=== PATIENT | male | born 1975 | race Caucasian/White ===

== ENCOUNTER 2018-01-16 18:58 | Inpatient (IN) ==
[2018-01-16 20:18] LABS: Basophils # 0.1 K/mcL (0.0-0.2); Basophils % 0.7 %; Eosinophils # 0.1 K/mcL (0.0-0.6); Eosinophils % 1.1 %; Hematocrit 39.9 % (37.5-50.1); Hemoglobin 13.2 g/dL (12.9-16.9); Immature Granulocytes % 0.2 % (0-4); Lymphocytes # 1.5 K/mcL (0.6-4.6); Lymphocytes % 11.8 %; Mean Corpuscular HGB Conc 33.1 g/dL (31.6-35.5); Mean Corpuscular Volume 81.8 fL (83.0-100.0); Mean Platelet Volume 9.4 fL (9.4-12.4); Monocytes # 0.7 K/mcL (0.0-1.3); Neutrophils # 9.8 K/mcL (1.6-8.9); Platelet Count 210 K/mcL (140-400); Red Blood Count 4.88 M/mcL (4.19-5.50); Red Cell Distribution Width 12.5 % (11.5-14.5); Segmented Neutrophils % 80.2 %
[2018-01-16 20:30] LABS: BUN/Creatinine Ratio 13 (6-26); Blood Urea Nitrogen 11 mg/dL (6-20); C-Reactive Protein 47 mg/L (Less than 10); Calcium 9.2 mg/dL (8.6-10.3); Carbon Dioxide 26 mEq/L (23-29); Chloride 100 mEq/L (98-107); Glucose 185 mg/dL (70-105); Osmolality,Calculated 288 (280-300); Potassium 3.9 mEq/L (3.5-5.1); Sodium 137 mEq/L (136-145); eGFR For African Americans > 60 (> 60); eGFR For Non-African Americans > 60 (> 60)
[2018-01-16] MEDS ORDERED: Piperacillin/Tazobactam 3.375 GM in 0.9 % Sodium Chloride Mini Bag 100 ML IVPB ONE (20:45)
--- NOTE | 2018-01-16 20:48 | Emergency Department Note ---
Disposition Clinical Impression: Diabetes mellitus type 2 with complications Osteomyelitis of left foot Qualifiers: Osteomyelitis type: subacute Qualified Code(s): M86.272 - Subacute osteomyelitis, left ankle and foot Disposition: Admitted As Inpatient Condition: Fair Referrals: NONE,PCP [Primary Care Provider] - Time of Disposition: 20:49 General Adult HPI - General Chief complaint: ED Extremity Injury, Lower Stated complaint: "Diabetic Ulcer on Bottom of Left Foot" Time Seen by Provider: 01/16/18 19:05 Source: patient Limitations: no limitations Nursing Notes Reviewed: Yes Vital Signs Reviewed: Yes - History of Present Illness HPI Narrative: 42-year-old male presents emergency room for left foot wound. States he has had a small ulcer there for some time since gotten worse. He saw podiatry for the first time today as appointment and was sent to the ER. Patient denies any fevers. Denies any other complaints. States his sugars have been uncontrolled as he ran out of medications and had been out of them for over 8 months. He states the wound started on the bottom of the left foot and has spread deep. The left foot was just bandaged up by podiatry at their office. Pain Scale: 2 - Related Data Home Medications Medication Instructions Recorded Confirmed Atorvastatin [Lipitor] 10 mg PO HS 03/12/16 08/19/17 Canagliflozin [Invokana] 300 mg PO DAILY 03/12/16 08/19/17 metFORMIN [Glucophage] 1,000 mg PO BIDWM 03/12/16 08/19/17 Previous Rx's Medication Instructions Recorded Ibuprofen [Motrin] 800 mg PO TID #15 tablet 03/12/16 Levofloxacin [Levaquin] 750 mg PO DAILY #7 tablet 12/20/17 Allergies Allergy/AdvReac Type Severity Reaction Status Date / Time codeine Allergy Vomiting Verified 12/20/17 00:35 Review of Systems: Gen.: No fevers or chills or new weakness Eyes: Denies double vision or any vision changes Ears: Denies any otalgia Pharynx: Denies sore throat CV: Denies chest pain. Denies palpitations Respiratory: Denies any cough or sputum production. No shortness of breath. GI: Denies any nausea, vomiting, diarrhea, constipation. Denies abdominal pain Neuro: Denies any headache. No problems with ambulation. No numbness. Skin: Denies any rashes or abrasions Psych: Denies any depression or suicidal or homicidal ideation Musculoskeletal: Denies any arthralgias or myalgias Past Medical History - Past Medical History Medical history: Reports: diabetes Psychiatric history: Reports: no psych history - Social History Smoking Status: Never smoker Smokeless Tobacco Status: No Alcohol use: Reports: none Drug use: Reports: none Physical Exam - General Limitations: no limitations General appearance: alert, in no apparent distress - Head Head exam: atraumatic, normocephalic - Eye Eye exam: Present: normal appearance - Respiratory Respiratory exam: Present: normal lung sounds bilaterally - Cardiovascular Cardiovascular exam: Present: regular rate, normal rhythm - Abdominal Exam Abdominal exam: Present: soft, Non-Tender, normal bowel sounds - Expanded Lower Extremity Exam Foot/toe exam: Present: other (Bandage wrapped around the left foot. I did not and bandage this at this time. Reports were that this is a quarter-sized lesion extending into the deep spaces of the left foot. Podiatry did wrap this up and repeat bandage this.) Neurovascular/Tendon exam: Present: normal capillary refill - Psychiatric Psychiatric exam: Present: normal affect, normal mood - Skin Skin exam: Present: warm, dry, intact Course Vital Signs Temperature 97.9 F 01/16/18 20:18 Pulse Rate 98 01/16/18 20:18 Respiratory Rate 20 01/16/18 20:18 Blood Pressure 118/77 01/16/18 20:18 O2 Sat by Pulse Oximetry 98 01/16/18 20:18 Temperature 97.9 F 01/16/18 20:18 Pulse Rate 98 01/16/18 20:18 Respiratory Rate 20 01/16/18 20:18 Blood Pressure 118/77 01/16/18 20:18 O2 Sat by Pulse Oximetry 98 01/16/18 20:18 Oxygen Delivery Oxygen Delivery Room Air Medical Decision Making - MDM Narrative Medical decision making narrative: Plain films of left foot showed complete destruction of the left metatarsal. This is consistent with osteomyelitis most likely. Patient will be admitted and placed on IV antibiotics with IV Zosyn and IV vancomycin. Consult podiatry. This was secondary to uncontrolled diabetes. - Medical Records Medical records reviewed: Yes I reviewed the patient's medical records. - Lab Data Lab results reviewed: Yes I reviewed the patient's lab results. Result diagrams: 01/16/18 19:55 01/16/18 19:55 Lab Results 01/16/18 01/16/18 01/16/18 Range/Units 19:55 19:55 19:55 WBC 12.3 H (4.3-11.1) K/mcL RBC 4.88 (4.19-5.50) M/mcL Hgb 13.2 (12.9-16.9) g/dL Hct 39.9 (37.5-50.1) % MCV 81.8 L (83.0-100.0) fL MCH 27.0 L (28.0-33.3) pg MCHC 33.1 (31.6-35.5) g/dL RDW 12.5 (11.5-14.5) % Plt Count 210 (140-400) K/mcL MPV 9.4 (9.4-12.4) fL Immature Gran % 0.2 (0-4) % Seg Neutrophils % 80.2 % Lymphocytes % 11.8 % Monocytes % 6.0 % Eosinophils % 1.1 % Basophils % 0.7 % Neutrophils # 9.8 H (1.6-8.9) K/mcL Lymphocytes # 1.5 (0.6-4.6) K/mcL Monocytes # 0.7 (0.0-1.3) K/mcL Eosinophils # 0.1 (0.0-0.6) K/mcL Basophils # 0.1 (0.0-0.2) K/mcL ESR 47 H (0-10) mm/hr Sodium 137 (136-145) mEq/L Potassium 3.9 (3.5-5.1) mEq/L Chloride 100 (98-107) mEq/L Carbon Dioxide 26 (23-29) mEq/L BUN 11 (6-20) mg/dL Creatinine 0.87 (0.70-1.30) mg/dL Est GFR ( Amer) > 60 (> 60) Est GFR (Non-Af Amer) > 60 (> 60) BUN/Creatinine Ratio 13 (6-26) Glucose 185 H (70-105) mg/dL Calculated Osmolality 288 (280-300) Calcium 9.2 (8.6-10.3) mg/dL C-Reactive Protein 47 H (Less than 10) mg/L - Radiology Data Radiology results reviewed: Yes I reviewed the patient's radiology results.
[2018-01-17] MEDS ORDERED: Acetaminophen 325 MG TABLET PO PRN (01:11)
[2018-01-17] MEDS ORDERED: Naloxone 0.4 MG/ML INJ IVP PRN (01:11)
--- NOTE | 2018-01-17 01:28 | Internal Med History&Physical ---
Date of Encounter: 01/17/18 Time of Encounter: 20:00 Internal Medicine - H&P: HPI Chief complaint: Osteomyelitis Admitted From: Home Plans for Post Hospital Care: Home History of present illness: Mr. Bray is a 42 year old male Patient presented to the emergency room after seeing his forensic identification specialist earlier today for diabetic foot ulcer. He was in the hospital at [place] about a month ago for this, and had antibiotics to take after his discharge. He was told to follow-up with podiatry for which he did. Upon arrival to his forensic identification specialist's office, it was decided that he needed to go to the emergency room for likely admission for osteomyelitis. Patient states he would have the foot ulcer on the bottom of his left foot for about a year, he had no medical care for that time as he did not have insurance. He tried very hard to keep it clean. He has a history of diabetes for which he only takes metformin and watches his diet. He thinks his last A1c last April was around 6.5. He denies fever, nausea, vomiting, diarrhea, constipation, chest pain and abdominal pain. He has some swelling and redness of his left leg, and has noticed a spot on his right foot below his pinky toe that is presenting similarly to how this first presented about a year ago. He denies pain in either of his feet. Past Med Surg Social Fam HX - Past Medical History Medical history: diabetes Psychiatric history: no psych history - Past Surgical History Surgical History: appendectomy, cataract - Social History Smoking Status: Never smoker Smokeless Tobacco Status: No Alcohol use: none Drug use: none Internal Medicine - H&P: Meds Atorvastatin [Lipitor] 10 mg PO HS 03/12/16 [History] metFORMIN [Glucophage] 1,000 mg PO BIDWM 03/12/16 [History] 3 Allergy/AdvReac Type Severity Reaction Status Date / Time codeine Allergy Vomiting Verified 01/16/18 21:30 All Systems PM: A 10-system review of systems was performed and is negative for pertinent findings except as documented above in the HPI. - Constitutional Vitals: Temp Pulse Resp BP Pulse Ox 97.9 F 93 18 143/92 98 01/16/18 23:11 01/16/18 23:11 01/16/18 23:11 01/16/18 23:11 01/16/18 23:11 General appearance: Present: A&O X 3, pleasant, no acute distress - Head Head exam: Present: normal inspection - Eye Eye exam: Present: EOMI, normal appearance - Neck Neck exam general surgery: Present: full ROM. Absent: tenderness - Respiratory Respiratory exam: Present: CTAB. Absent: chest wall tenderness, rales, respiratory distress, wheezes - Cardiovascular Cardiovascular exam: Present: RRR. Absent: diastolic murmur, systolic murmur - GI/Abdominal GI/Abdominal exam: Present: normal bowel sounds. Absent: firm, guarding, tenderness - Extremities Exam Extremities exam: Present: warm, radial pulses palpable and symmetrical. Absent : tenderness Additional comments: Left foot in dressing from podiatry, nursing removed dressing and noted that the defect tunnels completely through the top and bottom of the foot over the 4th digit. Dressing replaced. Left lower extremity swollen and erythema, with mild pain at mid-calf. Right foot has a small area of callus under the 5th digit, not tender, no skin break down. - Neurological Exam Neurological exam: Present: oriented X3. Absent: motor sensory deficit, facial droop, speech deficit - Skin Skin exam: Present: normal color, warm. Absent: rash Internal Med - H&P Results - Labs CBC & Chem 7: 01/17/18 03:34 01/17/18 03:34 - Assessment and plan (1) Osteomyelitis of left foot Current Visit: Yes Status: Acute Assessment and plan: Podiatry sent the patient over to the emergency room from their office. Recommended admission for osteomyelitis. Podiatry will see the patient in the morning. Foot x-ray showed cellulitis/abscess in the dorsum of the foot, acute osteomyelitis involving proximal phalanx of the fourth digit fourth metatarsal. Radiology recommended contrast enhanced MRI and/or triple phase bone scan for further evaluation. Podiatry consult in the morning MRI of left foot today. Continue antibiotics Qualifiers: Osteomyelitis type: subacute Qualified Code(s): M86.272 - Subacute osteomyelitis, left ankle and foot (2) Diabetes mellitus type 2 with complications Current Visit: Yes Status: Acute Assessment and plan: Patient takes metformin and invokana at home, will use insulin while in the hospital low dose. Check A1c in the morning. Qualifiers: Qualified Code(s): E11.8 - Type 2 diabetes mellitus with unspecified complications (3) Left leg swelling Current Visit: Yes Status: Acute Assessment and plan: Secondary to cellulitis and osteomyelitis of the left foot Treat as above. - Time Spent With Patient Total time spent is greater than 50% in coordination of care (as documented) at patient's floor/unit and/or counseling patient: Greater than 35 minutes
[2018-01-17 04:01] LABS: Basophils # 0.1 K/mcL (0.0-0.2); Basophils % 0.6 %; Eosinophils # 0.2 K/mcL (0.0-0.6); Eosinophils % 1.7 %; Hemoglobin 11.9 g/dL (12.9-16.9); Immature Granulocytes % 0.4 % (0-4); Lymphocytes # 1.9 K/mcL (0.6-4.6); Lymphocytes % 21.1 %; Mean Corpuscular HGB Conc 33.1 g/dL (31.6-35.5); Mean Corpuscular Hemoglobin 26.7 pg (28.0-33.3); Mean Corpuscular Volume 80.9 fL (83.0-100.0); Mean Platelet Volume 9.3 fL (9.4-12.4); Monocytes # 0.7 K/mcL (0.0-1.3); Monocytes % 7.5 %; Neutrophils # 6.2 K/mcL (1.6-8.9); Platelet Count 180 K/mcL (140-400); Red Blood Count 4.45 M/mcL (4.19-5.50); Red Cell Distribution Width 12.5 % (11.5-14.5); Segmented Neutrophils % 68.7 %
[2018-01-17 04:09] LABS: BUN/Creatinine Ratio 11 (6-26); Blood Urea Nitrogen 8 mg/dL (6-20); Calcium 8.7 mg/dL (8.6-10.3); Carbon Dioxide 27 mEq/L (23-29); Chloride 102 mEq/L (98-107); Glucose 145 mg/dL (70-105); Osmolality,Calculated 283 (280-300); Potassium 3.5 mEq/L (3.5-5.1); Sodium 136 mEq/L (136-145); eGFR For African Americans > 60 (> 60); eGFR For Non-African Americans > 60 (> 60)
[2018-01-17] MEDS: *HR* Heparin 5,000 UNIT/ML VIAL SQ SCH ×2 (05:41→18:00)
[2018-01-17] MEDS ORDERED: *HR* Dextrose 50 % in Water (Syg) 50 ML SYRINGE IVP PRN (07:10)
[2018-01-17] MEDS ORDERED: D5% in Water 1,000 ML IVC PRN (07:10)
[2018-01-17] MEDS ORDERED: Dextrose Gel 15 GM/37.5 ML TUBE PO PRN ×2 (07:10)
[2018-01-17 07:20] LABS: Estimated Average Glucose 143 mg/dl; Hemoglobin A1C 6.6 %
[2018-01-17] MEDS: Piperacillin/Tazobactam 3.375 GM in 0.9 % Sodium Chloride Mini Bag 100 ML IVPB SCH ×2 (09:06→17:48)
[2018-01-17] MEDS: Insulin LISPRO 300 UNITS/3 ML VIAL SQ SCH ×3 (09:10→17:01)
--- NOTE | 2018-01-17 13:16 | Podiatry Consult Note ---
Date of Encounter: 01/17/18 Time of Encounter: 12:20 Assessment and Plan (1) Osteomyelitis of left foot Current visit: Yes Status: Acute Full thickness ulceration to the left foot sub #4 metatarsal head communicating through to the dorsum of the foot at the base of the proximal phalanx, toe #4 with cellulitis and pus actively draining. Left foot x ray: Findings highly concerning for cellulitis/abscess involving the dorsum of the left foot and acute osteomyelitis involving the proximal phalanx of the left 4th digit and left 4th metatarsal. WBC: 12.3 upon admission, 9.1 today. Glucose 185 ESR: 47, CRP: 47 Plan: Continue wound care as ordered. Dr. Diehl to plan to take patient to surgery tomorrow 01/18/18 for amputation of 4th toe and metatarsal left foot with application of wound vac. NPO after midnight. Currently on Zosyn and Vancomycin. Qualifiers: Osteomyelitis type: subacute Qualified Code(s): M86.272 - Subacute osteomyelitis, left ankle and foot (2) Diabetes mellitus type 2 with complications Current visit: Yes Status: Acute Qualifiers: Diabetes mellitus watermelon inspector insulin use: without snf use Qualified Code(s): E11.8 - Type 2 diabetes mellitus with unspecified complications History of Present Illness HPI: Mr. Bray is a 42 year old male admitted to [place] with an ulceration to the left foot. Patient has a medical history significant for diabetes mellitus. Patient states last year he had a callus start on the bottom of his left foot. Patient states in July of 2017 the callus was draining and at that time was evaluated in the emergency room. Patient states he received antibiotics and instructed to follow up with podiatry. Patient states he did not follow up with podiatry due to losing his insurance. Patient states last month in December he had an infection of the left foot and x-rays were obtained at that time and he was told everything was okay and started on oral antibiotics. Patient states he followed up with Dr. Diehl last night at the [facility] and was instructed to go to the Emergency Room. Patient denies any fever, chills, chest pain, or shortness of breath. Patient does admit to numbness and tingling to both feet. Patient denies any surgeries to his feet. 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 Past Med Surg Social Fam HX - Past Medical History Medical history: diabetes Psychiatric history: no psych history - Past Surgical History Surgical History: appendectomy, cataract - Social History Smoking Status: Never smoker Smokeless Tobacco Status: No Alcohol use: none Drug use: none Medications and Allergies Atorvastatin [Lipitor] 10 mg PO HS 03/12/16 [History] metFORMIN [Glucophage] 1,000 mg PO BIDWM 03/12/16 [History] 3 Allergy/AdvReac Type Severity Reaction Status Date / Time codeine Allergy Vomiting Verified 01/16/18 21:30 All Systems Reviewed: Denies cp, denies sob, denies fever, denies chills, admits ulcer, admits numbness/tingling Physical Exam - Constitutional Vitals: Temp Pulse Resp BP Pulse Ox 98.0 F 76 16 120/80 99 01/17/18 11:29 01/17/18 11:29 01/17/18 11:29 01/17/18 11:29 01/17/18 11:29 Exam: General appearance: alert awake oriented X 3. Calm and pleasant, no acute distress.. Vascular: Pedal pulses +2/4 DP/PT , No evidence of cyanosis, pallor or rubor, Edema graded at 2+/4, Skin Temperature warm, No calf pain with manual compression. capillary refill time is immediate to digits. Neurologic: Sensation intact with light touch to foot. . Wound: Full thickness ulceration to the left foot sub #4 metatarsal head communicating through to the dorsum of the foot at the base of the proximal phalanx, toe #4 with cellulitis ascending to the midfoot, pus actively draining , malodorous, foot is edematous and warm to touch. Results - Labs Result Diagrams: 01/17/18 03:34 01/17/18 03:34 Labs: Abnormal lab results Hgb 11.9 g/dL (12.9-16.9) L 01/17/18 03:34 Hct 36.0 % (37.5-50.1) L 01/17/18 03:34 MCV 80.9 fL (83.0-100.0) L 01/17/18 03:34 MCH 26.7 pg (28.0-33.3) L 01/17/18 03:34 MPV 9.3 fL (9.4-12.4) L 01/17/18 03:34 ESR 47 mm/hr (0-10) H 01/16/18 19:55 Glucose 145 mg/dL (70-105) H 01/17/18 03:34 POC Glucose 146 mg/dL (70-99) H 01/17/18 11:29 Hemoglobin A1c 6.6 % (-5.6) H 01/17/18 03:34 C-Reactive Protein 47 mg/L (Less than 10) H 01/16/18 19:55 H & H 01/17/18 Range/Units 03:34 Hgb 11.9 L (12.9-16.9) g/dL Hct 36.0 L (37.5-50.1) % All other labs normal. Consult Discharge Plan - Plan Referrals: NONE,PCP [Primary Care Provider] -
[2018-01-18] MEDS: *HR* Heparin 5,000 UNIT/ML VIAL SQ SCH ×2 (05:40→16:19)
[2018-01-18] MEDS: Insulin LISPRO 300 UNITS/3 ML VIAL SQ SCH ×3 (09:31→16:11)
--- NOTE | 2018-01-18 11:51 | Anesthesia Evaluation PreOp ---
Date of Encounter: 01/18/18 Time of Encounter: 13:01 - Past History Planned Operation: Open toe amputation metatarsal #4 L foot Cardiac History: Hyperlipidemia Pulmonary History: Denies Any Significant HX ENTRY OPERATOR History: Denies Any Significant HX Other Medical History: Diabetes Type II, Other (osteomyelitits) Anesthesia History: No Prior Anesthetic Complications Alcohol Use: none Drug use: none Medications and Allergies Atorvastatin [Lipitor] 10 mg PO HS 03/12/16 [History] metFORMIN [Glucophage] 1,000 mg PO BIDWM 03/12/16 [History] 3 Allergy/AdvReac Type Severity Reaction Status Date / Time codeine Allergy Vomiting Verified 01/16/18 21:30 - Meds/Allergy Pre-op Review Medications Reviewed: Yes Allergies Reviewed: Yes Beta Blockers on Current Med List: No Anesthesia Results - Labs 01/17/18 03:34 01/17/18 03:34 Anesthesia Exam Last Vital Signs Temp 98.7 F 01/18/18 11:42 Pulse 81 01/18/18 11:42 Resp 17 01/18/18 11:42 BP 108/72 01/18/18 11:42 Pulse Ox 97 01/18/18 11:42 Weight: 102 kg - HEENT Pupil (Motor): Pupils equal, EOMI Mallampati: III Teeth: Normal Oral Opening: Greater than 3 - ENTRY OPERATOR LOC: Oriented - Cardiac Rhythm: Regular Murmur: None - Pulmonary Breath Sounds: bilateral Clear Respiratory Effort: Symmetrical Anesthesia Assess/Plan ASA Score: 2 Modified My Scale for Level of Consciousness: Cooperative, oriented, and tranquil Anesthetic Plan: General Monitoring Plan: Standard Monitors Recovery Plan: PACU
--- NOTE | 2018-01-18 12:33 | Podiatry Progress Note ---
Date of Encounter: 01/18/18 Time of Encounter: 12:00 - Assessment and Plan (1) Abscess of left foot including toes Current Visit: Yes Status: Acute Assessment: #1 diabetic foot abscess with ulceration and dorsal phlegmon with ongoing osteomyelitis fourth toe and metatarsal #2 diabetes with neuropathy #3 comorbidities as outlined in history Plan: #1 recommend amputation of toe and all infected tissue and bone. #2 discussed the risks versus benefits as well as alternatives to surgical intervention. Risks include but are not limited to infection bleeding pain loss of toe toes foot leg or life need for further surgery, failure procedure produce desired results DVT blood clots. Patient voiced comprehension. He had ample opportunity to ask questions about planned procedure and type of anesthetic and be employed. Those questions are answered to his satisfaction. He then signed a consent form no dressing or coercion without premedicated by me prior to signing consent form. We will proceed to the operating room expectantly. Subjective Principal diagnosis: Diabetic foot ulcer with abscess and osteomyelitis left Interval history: This 42-year-old male with a six-month history of foot ulcer plantar aspect #4 metatarsophalangeal joint. Patient has received intermittent by mouth antibiotics and different providers over the last 6 months. He was last seen in urgent care we will highly took x-rays and said he had no bone infection. He presented to the [facility] on Tuesday evening this week where I was asked to see him on urgent basis. At that point patient exhibited a phlegmon with a blowout lesion on the dorsal aspect of his fourth toe. Cultures were taken immediately. Patient was then recommended to go to the [facility] department for admission. Fortunately he has not shown any signs of sepsis at this point. An x-rays reveal complete erosion of the fourth metatarsal distally as well as the base the proximal phalanx. The patient's white count has normalized on intravenous antibiotics. He is otherwise stable. His A1c is stable a 6.6. He works 4 days a week. He is accompanied by his significant other. We have recommended that he undergo an incision debridement likely amputation of the fourth toe with resection of all infected tissue and bone. He would likely be placed on intravenous antibiotics for. 6 weeks depending upon response to treatment. Objective - Vital Signs Vital Signs: Vital Signs Temp Pulse Resp BP Pulse Ox 01/18/18 11:42 98.7 F 81 17 108/72 97 01/18/18 09:45 94 01/18/18 07:43 97.9 F 82 17 114/79 94 01/18/18 04:16 98.4 F 76 14 123/74 96 01/18/18 00:35 98.6 F 76 16 145/75 95 01/17/18 20:45 98 01/17/18 19:34 98.1 F 80 15 115/75 98 01/17/18 16:57 98.2 F 77 16 114/73 98 Intake and Output 01/17/18 01/18/18 01/18/18 23:59 07:59 15:59 Intake Total 240 / 240 Output Total 600 / 600 Balance -360 / -360 Intake: Oral 240 / 240 Output: Urine 600 / 600 Other: Meal Dinner Percent of Meal Consumed 100% # Voids 1 # Bowel Movements 0 Weight 102.4 kg Blood Glucose* 112 110 - Exam Exam: Foot ulcer plantar aspect left foot with phlegmon dorsal aspect fourth toe left foot Capillary Refill: less than 3 seconds - Radiology X-Rays: image reviewed - Lab Result Diagrams: 01/17/18 03:34 01/17/18 03:34 Labs: Abnormal lab results Hgb 11.9 g/dL (12.9-16.9) L 01/17/18 03:34 Hct 36.0 % (37.5-50.1) L 01/17/18 03:34 MCV 80.9 fL (83.0-100.0) L 01/17/18 03:34 MCH 26.7 pg (28.0-33.3) L 01/17/18 03:34 MPV 9.3 fL (9.4-12.4) L 01/17/18 03:34 ESR 47 mm/hr (0-10) H 01/16/18 19:55 Glucose 145 mg/dL (70-105) H 01/17/18 03:34 POC Glucose 108 mg/dL (70-99) H 01/18/18 08:18 Hemoglobin A1c 6.6 % (-5.6) H 01/17/18 03:34 C-Reactive Protein 47 mg/L (Less than 10) H 01/16/18 19:55 Consult Discharge Plan - Plan Referrals: NONE,PCP [Primary Care Provider] -
[2018-01-18] MEDS ORDERED: Bupivacaine/Clonidine Syringe 1 EACH SYRINGE ONE (13:01)
[2018-01-18] MEDS ORDERED: *HR* FentaNYL (PF) 100 MCG/2 ML VIAL ONE (13:07)
[2018-01-18] MEDS ORDERED: Lidocaine -MPF 2% 2 ML VIAL ONE (13:07)
[2018-01-18] MEDS ORDERED: *HR* Propofol 200 MG/20 ML VIAL IVP ONE (13:07)
[2018-01-18] MEDS ORDERED: *HR* Midazolam HCl 2 MG/2 ML VIAL ONE (13:08)
[2018-01-18] MEDS ORDERED: traMADol 50 MG TABLET PO PRN (13:22)
[2018-01-18] MEDS ORDERED: *HR* Promethazine 25 MG/ML VIAL IVP PRN (13:22)
[2018-01-18] MEDS ORDERED: *HR* OxyCODONE Immed Rel 5 MG TABLET PO PRN (13:22)
[2018-01-18] MEDS ORDERED: *HR* Succinylcholine 200 MG/10 ML VIAL IVP ONE (13:28)
[2018-01-18] MEDS ORDERED: Dexamethasone 4 MG/ML VIAL ONE (13:50)
[2018-01-18] MEDS ORDERED: Ondansetron 4 MG/2 ML VIAL ONE (13:50)
--- NOTE | 2018-01-18 14:53 | Orthopedic Operative Note ---
Date of procedure: 01/18/18 Pre-op diagnosis: #1 abscess left foot. #2 osteomyelitis #4 toe and metatarsal left foot Post-op diagnosis: same Procedure: 01/18/18 14:51 #1 incision and drainage left foot multiple areas #2 open amputation of toe #4 and metatarsal #4 left foot #3 placement of wound VAC Implants: None Complications: None Anesthesia: other (General anesthesia per LMA) Local Anesthetics: 0.25% Sensorcaine HCL SubQ (cc) Surgeon: Paulo Diehl Was there an outreach assistant present: No Estimated blood loss (cc): 10 Tourniquet Time (Minutes): 23 Specimen: #1 toe #4 left foot, tissue culture bone culture and swab cultures left marino Condition: stable Disposition: PACU Procedure in Detail: 01/18/18 14:53 Details in summary of procedure. Patient was brought to surgical suite. A sign in procedure was performed. Patient was then transferred the surgical table and positioned properly safely securely. Anesthetic timeout was taken. Left leg was elevated on a foam block. Patient underwent smooth induction general anesthesia was achieved per LMA. That point left ankle was prepped with alcohol 3 times in a modified ankle block was carried out without difficulty or complication. A complete rolled cast padding was placed above the malleoli followed by application ankle tourniquet. Surgical timeout was taken. A phlegmon was notable dorsal aspect of toe #4 overlying the MTPJ. Penetrating ulcer was noted on the plantar aspect fourth metatarsal left foot. The toe is globally edematous discoloration localized cellulitis. Fourth toe was identified. There is spontaneous purulent drainage emanating from the wound of the dorsal aspect of the fourth MTPJ. At that point incision was begun on the plantar aspect of the left foot just proximal to the penetrating ulceration and brought distally and then circumferentially with 2 similar elliptical incisions excising the ulceration and brought to the sulcus and then circumferentially around the fourth toe and a racquet type incision medial dorsal aspect of the base of the fourth toe and then proximally along the shaft of the fourth metatarsal. Extensor flexor tendons were divided to the fourth toe. The toe was then disarticulated easily without dividing the capsular structures because of the complete loss the integrity of the joint. Preoperative radiographs illustrated complete loss of the base of the proximal phalanx and the distal portion of the fourth metatarsal due to the osteomyelitis. After the toe was amputated incision was carried down to the fourth metatarsal distally along the shaft proximally. Fourth metatarsal was isolated using a McClamary elevator. Taking care McGlamry elevator was kept on the plantar aspect of the fourth metatarsal. Using [place] retractors to protect soft tissue the metatarsal was then divided at the proximal one third dorsal to plantar using a command power saw. McClamary elevator was left in place to protect soft tissue. The metatarsal was then resected ends placed in sterile cup and sent for culture immediately. Swab cultures were then taken of the wound. As well as tissue cultures. Remainder the wound was then debrided with a pickup and curved Metzenbaum scissor. At that point a month ultrasonic Misonix debrider was used to also debride the wound. Inspecting the void of the wound was thoroughly irrigated again with saline. All nonviable tissue was debrided. The wound was then sprayed with PRP placing a Ray-Sourav sponge in the wound tourniquet was released. Immediate hyperemic response was noted to toes #1235.. Sponge was left in place while I was able to perform skin closure on the plantar aspect of the foot from proximal distal to the webspace. At that point a wound VAC was then placed dorsally. It was found to function properly. Patient was then sent to PACU in good condition with vital signs stable. Estimated blood loss less than 10 mL tourniquet time 23 minutes. Complications none.
--- NOTE | 2018-01-18 15:20 | Anesthesia Evaluation Post Op ---
Date of Encounter: 01/18/18 Time of Encounter: 15:19 - Vital Signs Vital Signs: Last Vital Signs Temp 97.4 F L 01/18/18 14:58 Pulse 84 01/18/18 15:18 Resp 18 01/18/18 15:18 BP 105/76 01/18/18 15:18 Pulse Ox 96 01/18/18 15:18 - Lungs Lungs: Clear Ascult./Percussion - Airway Airway: Non-obstructed - Cardiovascular Regular Rate - Mental Status Mental Status: Alert & Oriented, Answers Appropriately - Pain Pain Scale: 2 - Nausea Vomiting Nausea Vomiting: Not Present - Hydration Hydration: Ice chips - Discharge PostOp Status: Transfer Patient to floor
[2018-01-18] MEDS ORDERED: Dextrose Gel 15 GM/37.5 ML TUBE PO PRN ×2 (15:34)
[2018-01-18] MEDS ORDERED: Naloxone 0.4 MG/ML INJ IVP PRN (15:34)
[2018-01-18] MEDS ORDERED: *HR* Dextrose 50 % in Water (Syg) 50 ML SYRINGE IVP PRN (15:34)
[2018-01-18] MEDS ORDERED: D5% in Water 1,000 ML IVC PRN (15:34)
[2018-01-18] MEDS ORDERED: Acetaminophen 325 MG TABLET PO PRN (15:34)
[2018-01-18] MEDS: Piperacillin/Tazobactam 3.375 GM in 0.9 % Sodium Chloride Mini Bag 100 ML IVPB SCH ×2 (16:19→23:24)
--- NOTE | 2018-01-18 20:41 | Internal Med Progress Note ---
Date of Encounter: 01/18/18 Time of Encounter: 20:41 - Assessment and plan (1) Osteomyelitis of left foot Current Visit: Yes Status: Acute Qualifiers: Osteomyelitis type: subacute Qualified Code(s): M86.272 - Subacute osteomyelitis, left ankle and foot (2) Type 2 diabetes mellitus Current Visit: Yes Status: Acute Qualifiers: Diabetes mellitus moth exterminator insulin use: without penitentiary use Diabetes mellitus complication status: with skin complications Diabetes mellitus complication detail: with foot ulcer Qualified Code(s): E11.621 - Type 2 diabetes mellitus with foot ulcer; L97.509 - Non-pressure chronic ulcer of other part of unspecified foot with unspecified severity (3) HLD (hyperlipidemia) Current Visit: Yes Status: Acute Qualifiers: Hyperlipidemia type: unspecified Qualified Code(s): E78.5 - Hyperlipidemia , unspecified - Time Spent With Patient Total time spent is greater than 50% in coordination of care (as documented) at patient's floor/unit and/or counseling patient: 25 - 35 minutes - Subjective Interval history: .. The patient had surgery today. It was incision and drainage of left foot; multiple areas. It was an open amputation of toe #4 and metatarsal #4 of left foot. A wound VAC was put in place. I saw this patient after the surgery. He does not feel anything in his left foot. Denies chest pain. Denies difficulty breathing, coughing and wheezing. OBJECTIVE: .. Skin: Free of rash and discoloration. There is a surgical dressing applied to the area of left foot. ENMT: Oral/pharyngeal mucosa is normal in appearance. Eyes: Sclera is white. There is no discharge from eyes. Respiratory: Normal breath sounds; no crackles or wheezes. CV: Heart is regular; no gallop or murmur. GI: Abdomen is soft and not tender. There is no palpable mass or visceromegaly. Neuro: There is no focal deficits. ASSESSMENT AND PLAN: .. Osteomyelitis of left foot. Diabetic foot ulcer of left foot. The surgery has been done. We will continue IV vancomycin and IV Zosyn. We will continue wound VAC. See notes from podiatry. The patient was on diabetic diet and metformin at home. His metformin is substituted by Humalog sliding scale. Hyperlipidemia. Will continue Lipitor. - Constitutional Vitals: Temp Pulse Resp BP Pulse Ox 98.4 F 84 15 104/67 97 07/04/18 20:20 01/18/18 20:20 01/18/18 20:20 01/18/18 20:20 01/18/18 20:20 General appearance: Present: A&O X 3, pleasant, no acute distress Internal Medicine: Result - Labs CBC & Chem 7: 01/17/18 03:34 01/17/18 03:34 - Impressions Impressions Foot X-Ray 01/18/18 14:59 IMPRESSION: 1. Status post amputation left 4th ray across the proximal 4th metatarsal diaphysis. 2. Other osseous structures appear unremarkable. 3. No unexpected retained radiopaque foreign body. 4. Correlate with the procedural report. D/ / Abdullahi Porter / Abdullahi Porter Interpreting Provider: Abdullahi Porter - VTE Documentation of Mechanical Device: Intermittent pneumatic compression device Consult Discharge Plan - Plan Referrals: NONE,PCP [Primary Care Provider] -
[2018-01-19] MEDS: *HR* Heparin 5,000 UNIT/ML VIAL SQ SCH ×2 (06:35→17:05)
[2018-01-19] MEDS: Insulin LISPRO 300 UNITS/3 ML VIAL SQ SCH ×3 (08:57→17:10)
[2018-01-19] MEDS: Piperacillin/Tazobactam 3.375 GM in 0.9 % Sodium Chloride Mini Bag 100 ML IVPB SCH ×2 (08:58→17:07)
--- NOTE | 2018-01-19 16:31 | Podiatry Progress Note ---
Date of Encounter: 01/19/18 Time of Encounter: 13:00 - Assessment and Plan (1) Osteomyelitis of left foot Current Visit: Yes Status: Acute Full thickness ulceration to the left foot sub #4 metatarsal head communicating through to the dorsum of the foot at the base of the proximal phalanx, toe #4 with cellulitis and pus actively draining. Left foot x ray: Findings highly concerning for cellulitis/abscess involving the dorsum of the left foot and acute osteomyelitis involving the proximal phalanx of the left 4th digit and left 4th metatarsal. S/p #1 incision and drainage left foot multiple areas #2 open amputation of toe #4 and metatarsal #4 left foot #3 placement of wound VAC by Dr. Diehl on 01/18/18 Intraop cultures pending. Plan: Wound VAC intact to the left foot, patient will need a wound VAC dressing change tomorrow. Wound VAC will need to be changed every Tuesday, Tuesday, Tuesday. Currently on Zosyn and Vancomycin. We will continue to follow patient closely. Patient will require a wound VAC post discharge. Qualifiers: Osteomyelitis type: subacute Qualified Code(s): M86.272 - Subacute osteomyelitis, left ankle and foot (2) Diabetes mellitus type 2 with complications Current Visit: Yes Status: Acute Qualifiers: Diabetes mellitus alf insulin use: without terminal system operator use Qualified Code(s): E11.8 - Type 2 diabetes mellitus with unspecified complications Subjective Principal diagnosis: Diabetic foot ulcer with abscess and osteomyelitis left Interval history: Patient is s/p incision and drainage left foot multiple areas, open amputation of toe #4 and metatarsal #4 left foot, placement of wound VAC by Dr. Diehl on 01/18/18. Patient is lying in bed with a wound VAC intact to the left foot. Patient denies any pain currently. Patient just had a PICC line inserted to the right upper extremity. No c/o fever, chills, cp, sob, calf pain or flu like symptoms. Objective - Vital Signs Vital Signs: Vital Signs Temp Pulse Resp BP Pulse Ox 01/19/18 14:39 97.8 F 80 18 104/69 97 01/19/18 11:12 97.7 F 78 18 100/63 98 01/19/18 06:52 97.8 F 78 18 110/70 97 01/19/18 03:36 98.5 F 79 15 103/67 95 07/04/18 23:33 99.0 F 84 15 111/69 97 01/18/18 20:20 98.4 F 84 15 104/67 97 01/18/18 18:41 97.6 F 92 16 103/66 96 01/18/18 17:39 97.7 F 91 16 116/76 98 01/18/18 16:43 97.9 F 85 16 100/67 98 Intake and Output 01/19/18 01/19/18 01/19/18 07:59 15:59 23:59 Intake Total 100 / 100 950 / 950 Output Total 750 / 750 550 / 550 Balance -650 / -650 400 / 400 Intake: IV Fluids 100 / 100 350 / 350 Zosyn 3.375 GM In 0.9 % Sodium 100 / 100 100 / 100 Chloride (Mini-Bag +) 100 ML @ 25 mls/hr IVPB Q8HR [facility] Rx#: [id number] Vancocin 1,500 MG In 0.9 % 250 / 250 Sodium Chloride 250 ML @ 167 mls/hr IVPB Q12H [facility] Rx#: [id number] Oral 600 / 600 Output: Urine 750 / 750 550 / 550 Other: Meal Lunch Percent of Meal Consumed 100% # Voids 1 Blood Glucose* 126 146 - Exam Exam: General appearance: alert awake oriented X 3. Calm and pleasant, no acute distress.. Vascular: Pedal pulses +2/4 DP/PT , No evidence of cyanosis, pallor or rubor, Edema graded at 1+/4, Skin Tempature warm, No calf pain with manual compression. capillary refill time is immediate to digits. Neurologic: Sensation intact with light touch to foot. . Postop Exam: S/P Wound vac intact to left foot, connected to 125mmhg low continuous suction. dressing dry and intact, no strikethrough drainage, no streaking, no odor, no pus, 60 mls of serosanguineous drainage observed to canister. - Lab Result Diagrams: 01/17/18 03:34 01/17/18 03:34 Labs: Abnormal lab results Hgb 11.9 g/dL (12.9-16.9) L 01/17/18 03:34 Hct 36.0 % (37.5-50.1) L 01/17/18 03:34 MCV 80.9 fL (83.0-100.0) L 01/17/18 03:34 MCH 26.7 pg (28.0-33.3) L 01/17/18 03:34 MPV 9.3 fL (9.4-12.4) L 01/17/18 03:34 ESR 47 mm/hr (0-10) H 01/16/18 19:55 Glucose 145 mg/dL (70-105) H 01/17/18 03:34 POC Glucose 219 mg/dL (70-99) H 01/18/18 21:52 Hemoglobin A1c 6.6 % (-5.6) H 01/17/18 03:34 C-Reactive Protein 47 mg/L (Less than 10) H 01/16/18 19:55 Microbiology, Last 48 Hours 01/18/18 14:00 Surgical Biopsy Culture - Preliminary Left Foot 01/18/18 14:06 Surgical Biopsy Culture - Preliminary Left Foot - VTE Documentation of Mechanical Device: Intermittent pneumatic compression device Consult Discharge Plan - Plan Referrals: NONE,PCP [Primary Care Provider] -
--- NOTE | 2018-01-19 18:10 | Internal Med Progress Note ---
Date of Encounter: 01/19/18 Time of Encounter: 18:10 - Assessment and plan (1) Osteomyelitis of left foot Current Visit: Yes Status: Acute Qualifiers: Osteomyelitis type: subacute Qualified Code(s): M86.272 - Subacute osteomyelitis, left ankle and foot (2) Type 2 diabetes mellitus Current Visit: Yes Status: Chronic Qualifiers: Diabetes mellitus half-way insulin use: without half-way use Diabetes mellitus complication status: with skin complications Diabetes mellitus complication detail: with foot ulcer Qualified Code(s): E11.621 - Type 2 diabetes mellitus with foot ulcer; L97.509 - Non-pressure chronic ulcer of other part of unspecified foot with unspecified severity (3) HLD (hyperlipidemia) Current Visit: Yes Status: Chronic Qualifiers: Hyperlipidemia type: unspecified Qualified Code(s): E78.5 - Hyperlipidemia , unspecified - Time Spent With Patient Total time spent is greater than 50% in coordination of care (as documented) at patient's floor/unit and/or counseling patient: - Subjective Interval history: .. The patient had surgery yesterday. It was incision and drainage of left foot; multiple areas. It was an open amputation of toe #4 and metatarsal #4 of left foot. A wound VAC was put in place. He does not feel anything in his left foot. Denies chest pain. Denies difficulty breathing, coughing and wheezing. OBJECTIVE: .. Skin: Free of rash and discoloration. There is a surgical dressing applied to the area of left foot. ENMT: Oral/pharyngeal mucosa is normal in appearance. Eyes: Sclera is white. There is no discharge from eyes. Respiratory: Normal breath sounds; no crackles or wheezes. CV: Heart is regular; no gallop or murmur. GI: Abdomen is soft and not tender. There is no palpable mass or visceromegaly. Neuro: There is no focal deficits. ASSESSMENT AND PLAN: .. Osteomyelitis of left foot. Diabetic foot ulcer of left foot. The surgery has been done. We will continue IV vancomycin and IV Zosyn. We will continue wound VAC. See notes from podiatry. The patient was on diabetic diet and metformin at home. His metformin is substituted by Humalog sliding scale. Hyperlipidemia. Will continue Lipitor. - Constitutional Vitals: Temp Pulse Resp BP Pulse Ox 97.8 F 80 18 104/69 97 01/19/18 14:39 01/19/18 14:39 01/19/18 14:39 01/19/18 14:39 01/19/18 14:39 General appearance: Present: A&O X 3, pleasant, no acute distress Internal Medicine: Result - Labs CBC & Chem 7: 01/20/18 00:46 01/20/18 00:46 - VTE Documentation of Mechanical Device: Intermittent pneumatic compression device Consult Discharge Plan - Plan Referrals: NONE,PCP [Primary Care Provider] -
[2018-01-20] MEDS: Piperacillin/Tazobactam 3.375 GM in 0.9 % Sodium Chloride Mini Bag 100 ML IVPB SCH ×3 (00:04→16:26)
[2018-01-20 01:00] LABS: Basophils # 0.1 K/mcL (0.0-0.2); Basophils % 0.8 %; Eosinophils # 0.2 K/mcL (0.0-0.6); Eosinophils % 3.1 %; Hematocrit 36.2 % (37.5-50.1); Immature Granulocytes % 0.4 % (0-4); Lymphocytes # 2.3 K/mcL (0.6-4.6); Lymphocytes % 31.6 %; Mean Corpuscular HGB Conc 33.1 g/dL (31.6-35.5); Mean Corpuscular Hemoglobin 27.5 pg (28.0-33.3); Mean Platelet Volume 9.3 fL (9.4-12.4); Monocytes # 0.5 K/mcL (0.0-1.3); Monocytes % 6.5 %; Neutrophils # 4.1 K/mcL (1.6-8.9); Platelet Count 172 K/mcL (140-400); Red Blood Count 4.36 M/mcL (4.19-5.50); Red Cell Distribution Width 12.6 % (11.5-14.5); Segmented Neutrophils % 57.6 %
[2018-01-20 01:22] LABS: BUN/Creatinine Ratio 14 (6-26); Blood Urea Nitrogen 13 mg/dL (6-20); Calcium 8.8 mg/dL (8.6-10.3); Carbon Dioxide 30 mEq/L (23-29); Chloride 102 mEq/L (98-107); Glucose 126 mg/dL (70-105); Magnesium 1.9 mg/dL (1.6-2.6); Osmolality,Calculated 288 (280-300); Potassium 3.9 mEq/L (3.5-5.1); Sodium 138 mEq/L (136-145); eGFR For African Americans > 60 (> 60); eGFR For Non-African Americans > 60 (> 60)
[2018-01-20] MEDS: *HR* Heparin 5,000 UNIT/ML VIAL SQ SCH ×2 (06:16→18:37)
[2018-01-20] MEDS: Insulin LISPRO 300 UNITS/3 ML VIAL SQ SCH ×3 (08:17→18:36)
--- NOTE | 2018-01-20 13:53 | Podiatry Progress Note ---
Date of Encounter: 01/20/18 Time of Encounter: 12:00 - Assessment and Plan (1) Abscess of left foot including toes Current Visit: Yes Status: Acute Full thickness ulceration to the left foot sub #4 metatarsal head communicating through to the dorsum of the foot at the base of the proximal phalanx, toe #4 with cellulitis and pus actively draining. Left foot x ray: Findings highly concerning for cellulitis/abscess involving the dorsum of the left foot and acute osteomyelitis involving the proximal phalanx of the left 4th digit and left 4th metatarsal. S/p #1 incision and drainage left foot multiple areas #2 open amputation of toe #4 and metatarsal #4 left foot #3 placement of wound VAC by Dr. Diehl on 01/18/18 Intraop cultures pending. Plan: Wound VAC intact to the left foot, removed at bedside and wound assessed SW notes that patient does not have insurance and is unable to have wound vac at home- Spoke with , will surgically close wound at bedside tomorrow as to allow for healing and no need for wound vac Patient will need to go home on IV anitbiotics once intraop cultures have been returned. Currently on Zosyn and Vancomycin. We will continue to follow patient closely. (2) Osteomyelitis of left foot Current Visit: Yes Status: Acute Continue current antibiotic coverage, awaiting intraop cultures Qualifiers: Osteomyelitis type: subacute Qualified Code(s): M86.272 - Subacute osteomyelitis, left ankle and foot Subjective Principal diagnosis: Diabetic foot ulcer with abscess and osteomyelitis left Interval history: Patient is s/p incision and drainage left foot multiple areas, open amputation of toe #4 and metatarsal #4 left foot, placement of wound VAC by Dr. Diehl on 01/18/18. Patient is lying in bed with a wound VAC intact to the left foot. Patient denies any pain currently. Patient had a PICC line inserted to the right upper extremity. No c/o fever, chills, cp, sob, calf pain or flu like symptoms. Wound vac intact and running without leak or complication. Objective - Vital Signs Vital Signs: Vital Signs Temp Pulse Resp BP Pulse Ox 01/20/18 11:32 98.0 F 77 18 132/79 96 01/20/18 06:49 98.5 F 77 18 120/75 96 01/20/18 04:37 98 F 75 15 99/65 93 07/05/18 23:28 98.5 F 77 15 99/66 95 01/19/18 19:32 98.0 F 81 14 94/61 96 01/19/18 14:39 97.8 F 80 18 104/69 97 Intake and Output 01/19/18 01/20/18 01/20/18 23:59 07:59 15:59 Intake Total 850 / 850 600 / 600 350 / 350 Output Total 1755 / 1755 1350 / 1350 Balance -905 / -905 600 / 600 -1000 / -1000 Intake: IV Fluids 350 / 350 100 / 100 350 / 350 Zosyn 3.375 GM In 0.9 % Sodium 100 / 100 100 / 100 100 / 100 Chloride (Mini-Bag +) 100 ML @ 25 mls/hr IVPB Q8HR [facility] Rx#: [id number] Vancocin 1,500 MG In 0.9 % 250 / 250 250 / 250 Sodium Chloride 250 ML @ 167 mls/hr IVPB Q12H [facility] Rx#: [id number] Oral 500 / 500 500 / 500 Output: Urine 1600 / 1600 1350 / 1350 Wound Drainage 155 / 155 Left Foot 155 / 155 Other: # Voids 2 Weight 98 kg Blood Glucose* 137 120 142 - Exam Exam: Podiatry General Exam: General appearance: alert awake oriented X 3. Calm and pleasant, no acute distress.. Vascular: Pedal pulses +2/4 DP/PT , No evidence of cyanosis, pallor or rubor, Edema graded at 1+/4, Skin Temperature warm, No calf pain with manual compression. capillary refill time is immediate to digits. Neurologic: Sensation intact with light touch to foot. . Postop Exam: Sutures intact to incision line Wound vac removed from surgical site. Surgically created opening noted to dorsal aspect of foot, vac sponge removed, minimal drainage noted. minimal swelling noted to foot. Minimal surrounding edema or erythema. minimal warmth. Appears to be healing well with no clinical signs of complication. , no signs of dehiscence. No open area, no drainage, no odor, no erythema, no streaking. Minimal edema. 100ml bloody drainage to wound vac canister. - Lab Result Diagrams: 01/20/18 00:46 01/20/18 00:46 Labs: Abnormal lab results Hgb 12.0 g/dL (12.9-16.9) L 01/20/18 00:46 Hct 36.2 % (37.5-50.1) L 01/20/18 00:46 MCH 27.5 pg (28.0-33.3) L 01/20/18 00:46 MPV 9.3 fL (9.4-12.4) L 01/20/18 00:46 ESR 47 mm/hr (0-10) H 01/16/18 19:55 Carbon Dioxide 30 mEq/L (23-29) H 01/20/18 00:46 Glucose 126 mg/dL (70-105) H 01/20/18 00:46 POC Glucose 146 mg/dL (70-99) H 01/19/18 15:55 Hemoglobin A1c 6.6 % (-5.6) H 01/17/18 03:34 C-Reactive Protein 47 mg/L (Less than 10) H 01/16/18 19:55 Microbiology, Last 48 Hours 01/18/18 14:00 Wound Culture - Preliminary Left Foot Gram Negative Scot 01/18/18 14:06 Surgical Biopsy Culture - Preliminary Left Foot Gram Negative Scot 01/18/18 14:00 Surgical Biopsy Culture - Preliminary Left Foot Gram Negative Scot - VTE Documentation of Mechanical Device: Intermittent pneumatic compression device Consult Discharge Plan - Plan Referrals: NONE,PCP [Primary Care Provider] -
[2018-01-21] MEDS: Piperacillin/Tazobactam 3.375 GM in 0.9 % Sodium Chloride Mini Bag 100 ML IVPB SCH ×2 (00:57→09:16)
[2018-01-21] MEDS: *HR* Heparin 5,000 UNIT/ML VIAL SQ SCH (05:04)
--- NOTE | 2018-01-21 05:37 | Internal Med Progress Note ---
Date of Encounter: 01/20/18 Time of Encounter: 19:00 - Assessment and plan (1) Osteomyelitis of left foot Current Visit: Yes Status: Acute Qualifiers: Osteomyelitis type: subacute Qualified Code(s): M86.272 - Subacute osteomyelitis, left ankle and foot (2) Type 2 diabetes mellitus Current Visit: Yes Status: Chronic Qualifiers: Diabetes mellitus penitentiary insulin use: without penitentiary use Diabetes mellitus complication status: with skin complications Diabetes mellitus complication detail: with foot ulcer Qualified Code(s): E11.621 - Type 2 diabetes mellitus with foot ulcer; L97.509 - Non-pressure chronic ulcer of other part of unspecified foot with unspecified severity (3) HLD (hyperlipidemia) Current Visit: Yes Status: Chronic Qualifiers: Hyperlipidemia type: unspecified Qualified Code(s): E78.5 - Hyperlipidemia , unspecified - Time Spent With Patient Total time spent is greater than 50% in coordination of care (as documented) at patient's floor/unit and/or counseling patient: - Subjective Interval history: .. The patient had surgery 2 days ago. It was incision and drainage of left foot; multiple areas. It was an open amputation of toe #4 and metatarsal #4 of left foot. A wound VAC was put in place. It was removed today. Denies chest pain. Denies difficulty breathing, coughing and wheezing. OBJECTIVE: .. Skin: Free of rash and discoloration. There is a surgical dressing applied to the area of left foot. Respiratory: Normal breath sounds; no crackles or wheezes. CV: Heart is regular; no gallop or murmur. GI: Abdomen is soft and not tender. There is no palpable mass or visceromegaly. Neuro: There is no focal deficits. ASSESSMENT AND PLAN: .. Osteomyelitis of left foot. Diabetic foot ulcer of left foot. The surgery has been done. We will continue IV vancomycin and IV Zosyn. See notes from podiatry. He is wound VAC was discontinued today; he does not have any medical insurance to pay for that. The wound will be surgically closed tomorrow. The patient was on diabetic diet and metformin at home. His metformin is substituted by Humalog sliding scale. Hyperlipidemia. Will continue Lipitor. - Constitutional Vitals: Temp Pulse Resp BP Pulse Ox 97.8 F 74 16 102/67 97 01/21/18 05:15 01/21/18 05:15 01/21/18 05:15 01/21/18 05:15 01/21/18 05:15 General appearance: Present: A&O X 3, pleasant, no acute distress Internal Medicine: Result - Labs CBC & Chem 7: 01/20/18 00:46 01/20/18 00:46 - VTE Documentation of Mechanical Device: Intermittent pneumatic compression device Consult Discharge Plan - Plan Referrals: NONE,PCP [Primary Care Provider] -
[2018-01-21 07:05] VITALS: BP 107/64
[2018-01-21] MEDS: Insulin LISPRO 300 UNITS/3 ML VIAL SQ SCH ×2 (09:10→12:14)
[2018-01-21] MEDS ORDERED: Lidocaine -MPF 1% 5 ML AMPUL ONE (09:25)
[2018-01-21] MEDS ORDERED: Lidocaine -MPF 1% 5 ML AMPUL INFILT ONE (09:33)
--- NOTE | 2018-01-21 10:06 | Discharge Summary ---
Date of Encounter: 01/21/18 Time of Encounter: 10:02 - NOTES TO OUTPATIENT PROVIDER Notes to Outpatient Provider: Underwent secondary closure surgical wound, day of discharge. Dry sterile dressing applied to the left intact. Follow-up within 72 hours of discharge dressing change and wound evaluation Orders not resulted at time of discharge: Pending orders 01/18/18 14:00 Culture,Anaerobic [RM] Routine Culture,Tissue (Biopsy) [RM] Routine Culture,Wound [RM] Routine 01/18/18 14:06 Culture,Tissue (Biopsy) [RM] Routine - Discharge Diagnosis (1) Abscess of left foot including toes Priority: Primary Status: Acute Procedures and tests throughout hospitalization: #1: Patient went open amputation of the fourth ray toe and metatarsal left foot and placement of wound VAC. Is given intravenous antibiotics. Cultures were pending and found to have gram-negative scot gram-positive cocci. Labs on day of discharge: Labs from last 24 hours 01/20/18 01/20/18 01/20/18 21:00 20:56 16:29 POC Glucose 124 H 109 H Vancomycin Trough 10 01/20/18 01/20/18 01/19/18 11:35 06:50 21:18 POC Glucose 142 H 120 H 137 H Vancomycin Trough Preliminary micro results at discharge 01/18/18 14:00 Wound Culture - Preliminary Left Foot Proteus penneri Gram Positive Rods 01/18/18 14:06 Surgical Biopsy Culture - Preliminary Left Foot Gram Negative Scot 01/18/18 14:00 Surgical Biopsy Culture - Preliminary Left Foot Gram Negative Scot - Impressions ITS Impressions Foot X-Ray 01/18/18 14:59 IMPRESSION: 1. Status post amputation left 4th ray across the proximal 4th metatarsal diaphysis. 2. Other osseous structures appear unremarkable. 3. No unexpected retained radiopaque foreign body. 4. Correlate with the procedural report. D/ / Abdullahi Porter / Abdulalhi Porter Interpreting Provider: Abdullahi Porter - Hospital Course Hospital course: Mr. Bray is a 42 year old male , was admitted for active abscess infection and necrosis of toe #4 left foot. He underwent open amputation of the fourth toe and metatarsal is of osteomyelitis which was diagnosed at the time admission per x-ray. He subsequently underwent debridement with amputation of the fourth ray placement intravenous antibiotics. Cultures were taken. Patient improved dramatically with subsequent postoperative course at which point we are able to close the dorsal wound prior to discharge. - Time Spent with Patient Total time spent providing and/or coordinating discharge services: Specific discharge activities: #1 no work duties. He is homebound. He is to use postop shoe and crutches and keep weight on the left heel only. He is not to bear weight over the incision plantar aspect of his forefoot at any time for any reason - Discharge Medications Prescriptions: Amoxicillin/Clavulanate [Augmentin] 875 mg PO BIDWM #20 tablet Levofloxacin [Levaquin] 500 mg PO DAILY #10 tablet Home Medications: Atorvastatin [Lipitor] 10 mg PO HS 03/12/16 [History] metFORMIN [Glucophage] 1,000 mg PO BIDWM 03/12/16 [History] Amoxicillin/Clavulanate [Augmentin] 875 mg PO BIDWM #20 tablet 01/21/18 [Rx] Levofloxacin [Levaquin] 500 mg PO DAILY #10 tablet 01/21/18 [Rx] Allergies/Adverse Reactions: 3 Allergy/AdvReac Type Severity Reaction Status Date / Time codeine Allergy Vomiting Verified 01/16/18 21:30 Date of admission: 01/17/18 02:26 Primary care physician: PCP NONE Consults: 01/18/18 12:33 Consult to Paver Operator [CONS] Routine Reason for SW Consult: usp IV ATB Discharging clinician: Paulo Diehl Anticipated date of discharge: 01/21/18 - Patient Status Disposition: Home, Self-Care Condition: Fair Functional capacity at discharge: uses cane/walker Overall status at discharge: patient is progressing back to baseline - Discharge Instructions Follow Up With: NONE,PCP [Primary Care Provider] - Additional Instructions: #1 keep dressing dry clean and intact. #2 keep left foot elevated at all times #3 use postop shoe and crutches with no weight to his left forefoot. Balance on weight 2 left heel only. #4 take all antibiotics as instructed #5 return to clinic, appointment with Dr. Diehl within 72-96 hours of discharge at [facility] call [phone] Tuesday a.m. for an appointment - Diet and Activity Activity: other (Use postop shoe and crutches with weight 2 he will only.) Diet: diabetic diet - VTE Documentation of Mechanical Device: Intermittent pneumatic compression device
--- NOTE | 2018-01-21 12:47 | Discharge Summary ---
Orders not resulted at time of discharge: Pending orders 01/18/18 14:00 Culture,Anaerobic [RM] Routine Culture,Tissue (Biopsy) [RM] Routine Culture,Wound [RM] Routine 01/18/18 14:06 Culture,Tissue (Biopsy) [RM] Routine 01/22/18 10:00 Vancomycin,Trough Timed Date of Encounter: 01/21/18 Time of Encounter: 12:45 - Discharge Diagnosis (1) Osteomyelitis of left foot Priority: Primary Status: Acute Qualifiers: Osteomyelitis type: subacute Qualified Code(s): M86.272 - Subacute osteomyelitis, left ankle and foot (2) Type 2 diabetes mellitus Priority: Primary Status: Chronic Qualifiers: Diabetes mellitus intermediate insulin use: without intermediate accountant use Diabetes mellitus complication status: with skin complications Diabetes mellitus complication detail: with foot ulcer Qualified Code(s): E11.621 - Type 2 diabetes mellitus with foot ulcer; L97.509 - Non-pressure chronic ulcer of other part of unspecified foot with unspecified severity (3) HLD (hyperlipidemia) Priority: Secondary Status: Chronic Qualifiers: Hyperlipidemia type: unspecified Qualified Code(s): E78.5 - Hyperlipidemia , unspecified Hospital course: Mr. Bray is a 42 year old male Discharge discussed with: patient, nurse, social work, case management - Time Spent with Patient Total time spent providing and/or coordinating discharge services: Greater than 30 minutes (35 minutes) - Discharge Medications Prescriptions: Amoxicillin/Clavulanate [Augmentin] 875 mg PO BIDWM #20 tablet Levofloxacin [Levaquin] 500 mg PO DAILY #10 tablet Home Medications: Atorvastatin [Lipitor] 10 mg PO HS 03/12/16 [History] metFORMIN [Glucophage] 1,000 mg PO BIDWM 03/12/16 [History] Acetaminophen [Tylenol] 650 mg PO Q6HR PRN tablet 01/21/18 [Rx] Amoxicillin/Clavulanate [Augmentin] 875 mg PO BIDWM #20 tablet 01/21/18 [Rx] Levofloxacin [Levaquin] 500 mg PO DAILY #10 tablet 01/21/18 [Rx] Allergies/Adverse Reactions: 3 Allergy/AdvReac Type Severity Reaction Status Date / Time codeine Allergy Vomiting Verified 01/16/18 21:30 Date of admission: 01/17/18 02:26 Primary care physician: PCP NONE Consults: 01/18/18 12:33 Consult to Early Childhood [CONS] Routine Reason for SW Consult: intermediate accountant IV ATB Discharging clinician: Brian Sweet Anticipated date of discharge: 01/21/18 - Constitutional Vitals: Temp Pulse Resp BP Pulse Ox 98 F 79 16 107/64 98 01/21/18 06:48 01/21/18 06:48 01/21/18 06:48 01/21/18 06:48 01/21/18 06:48 General appearance: Present: A&O X 3, pleasant, no acute distress - Respiratory Respiratory exam: Present: CTAB. Absent: accessory muscle use, rales, rhonchi, wheezes - Cardiovascular Cardiovascular exam: Present: RRR, +S1, +S2. Absent: diastolic murmur, gallop, rubs, systolic murmur - GI/Abdominal GI/Abdominal exam: Present: normal bowel sounds, soft, no peritoneal signs. Absent: distended, tenderness - Skin Skin exam: Present: dry, intact Additional comments: Left foot wound - see notes from podiatry.. - Patient Status Disposition: Home, Self-Care Condition: Fair Overall status at discharge: patient is not back to baseline - Discharge Instructions Follow Up With: NONE,PCP [Primary Care Provider] - Additional Instructions: #1 keep dressing dry clean and intact. #2 keep left foot elevated at all times #3 use postop shoe and crutches with no weight to his left forefoot. Balance on weight 2 left heel only. #4 take all antibiotics as instructed #5 return to clinic, appointment with Dr. Diehl within 72-96 hours of discharge at [facility] call [phone] Tuesday a.m. for an appointment - Diet and Activity Activity: increase activity as tolerated Diet: diabetic diet - VTE Documentation of Mechanical Device: Intermittent pneumatic compression device Deep Vein Thrombosis/Pulmonary Embolism Present on Admission: No
[2018-01-21] MEDS ORDERED: Aminoglycoside Consult 1 EACH MC ONE (14:59)
== END 2018-01-21 15:00 | disposition home or self-care (01) | DRG 617 ==
LOC: 3NENU 18:58 → EMEROO 18:58 → 3NENU 23:04 → SUATTDRO 01-17 02:26
PROVIDERS: ADMIT Internal Medicine Nephrology; ATTEND Internal Medicine